=== PATIENT | male | born 1990 | race African-American/Black ===

== ENCOUNTER 2018-07-16 08:47 | Emergency (ER) | payer OTHER, SELFPAY ==
[~2018-07-16] VITALS: Ht 180.3 cm; Wt 68.0 kg
[2018-07-16] MEDS ORDERED: ONDANSETRON HCL 4MG/2ML INJ IV STA (08:56)
[2018-07-16] MEDS ORDERED: SODIUM CHLORIDE 0.9% 1,000 ML IV ONE (08:56)
[2018-07-16 10:01] LABS: BASOPHILS % 0.5 % (0.0-2.0); EOSINOPHILS % 5.8 % (0.0-5.0); HEMATOCRIT. 43.6 % (42.0-52.0); HEMOGLOBIN. 14.6 g/dL (14.0-18.0); LYMPHOCYTES % 31.3 % (20.0-50.0); MEAN CORPUSCULAR HEMOGLOBIN 32.1 pg (28.0-32.0); MEAN CORPUSCULAR VOLUME 95.7 fL (80.0-94.0); MEAN PLATELET VOLUME 7.6 fl (7.4-10.4); MONOCYTES % 6.3 % (2.0-8.0); NEUTROPHILS % 56.1 % (40.0-76.0); PLATELET 229 x1000/uL (130-400); RED BLOOD CELL COUNT 4.56 mill/uL (4.7-6.1)
[2018-07-16 10:08] LABS: CHLORIDE 106 mEq/L (98-107)
[2018-07-16 10:12] LABS: ETHANOL BLOOD < 10 mg/dL
[2018-07-16 10:20] VITALS: BP 120/79
== END 2018-07-16 10:44 | disposition left against medical advice (07) ==
LOC: ER 08:47
DX: R53.1 Weakness (principal); I95.9 Hypotension, unspecified; R41.82 Altered mental status, unspecified; M41.9 Scoliosis, unspecified
CPT/HCPCS: 36415; 71045; 80053; 80307; 80329; 83605; 83690; 84484; 85025; 87186; 99284; J7030; A4315